=== PATIENT | female | born 1990 | race African-American/Black ===

== ENCOUNTER 2024-06-04 21:15 | Emergency (ER) | payer MEDICAID ==
[~2024-06-04] VITALS: Ht 149.9 cm; Wt 68.0 kg
[2024-06-04 21:38] VITALS: O2SAT 99
[2024-06-04] MEDS ORDERED: TOPUD MT (23:45)
[2024-06-04] MEDS ORDERED: DIPH25CA83 MT (23:45)
[2024-06-04] MEDS ORDERED: BENZ100C86 MT (23:45)
[2024-06-04 23:55] VITALS: BP 118/56; PULSE 90; RESP 18; TEMP 37.1; O2SAT 99
== END 2024-06-04 23:56 | disposition home or self-care (01) ==
LOC: ER 21:15
DX: B34.9 Viral infection, unspecified (principal); J45.909 Unspecified asthma, uncomplicated; Z86.59 Personal history of other mental and behavioral disorders
CPT/HCPCS: 99283